=== PATIENT | female | born 1995 | race Caucasian/White ===

== ENCOUNTER 2019-06-11 19:37 | Emergency (ER) | payer MEDICAID ==
[~2019-06-11] VITALS: Ht 160 cm; Wt 103.0 kg
[2019-06-11 20:19] VITALS: BP 151/97
== END 2019-06-12 01:23 | disposition left against medical advice (07) ==
LOC: ER 19:37
DX: Z53.21 Procedure and treatment not carried out due to patient leaving prior to being seen by health care provider (principal)